=== PATIENT | male | born 1985 | race Caucasian/White ===

== ENCOUNTER → 2023-08-20 | Emergency (ER) | payer OTHER, SELFPAY ==
[~2023-08-20] MED LIST: ACETAMINOPHEN 500 MG TAB ONE; IBUPROFEN 200 MG TAB PO ONE; IBUPROFEN 400 MG TAB ONE; LIDOCAINE 1% 20 ML MDV ONE; TDAP (DIPHTH,PERTUSS(ACELL),TET VAC) 0.5 ML VIAL IMVAC ONE
--- NOTE | 2023-08-20 20:59 | EDPHYS ---
Physician Documentation [facility] Name: Pj Anthony Age: 38 yrs Sex: Male : 1985 Arrival Date: 08/20/2023 Time: 18:40 Bed 14 Private MD: ED Physician Diogo Maravilla HPI: 08/19 21:17 This 38 yrs old Male presents to ER via Wheelchair with complaints of Laceration To Leg.kb 21:17 Patient is a 38-year-old male who presents for laceration to right thigh that occurred kb just prior to arrival. 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 Historical: - Allergies: 19:31 No Known Allergies; ll1 - Home Meds: 19:31 None [Active]; ll1 - PMHx: 19:31 None; ll1 - PSHx: 19:31 None; ll1 - Immunization history:: Adult Immunizations unknown, Last tetanus immunization: unknown. - Social history:: Smoking status: Patient/guardian denies using tobacco, Stopped _ months ago 3 Patient/guardian denies using alcohol, street drugs. ROS: 21:13 Constitutional: As per HPI kb Exam: 21:13 Constitutional: This is a well developed, well nourished patient who is awake, alert, kb and in no acute distress. Head/Face: Normocephalic, atraumatic. ENT: Moist Mucous membranes Cardiovascular: Regular rate Respiratory: Respirations even and unlabored. No increased work of breathing. Talking in full sentences MS/ Extremity: Pulses equal, no cyanosis. Neurovascular intact. Full, normal range of motion. Neuro: Awake and alert, GCS 15, oriented to person, place, time, and situation. Moves all extremities. Normal gait. 21:13 Skin: injury, laceration(s), the wound is approximately 8 cm(s), of the right quadriceps, that can be described as clean, no foreign body, linear, with mild bleeding, Vital Signs: 19:28 BP 140 / 87; Pulse 74; Resp 16; Temp 98.2(O); Pulse Ox 100% on R/A; Weight 83.91 kg; ll1 Height 5 ft. 11 in. ; Pain 0/10; 20:53 BP 131 / 83; Pulse 76; Resp 17; Temp 98; Pulse Ox 99% ; rv 19:28 Body Mass Index 25.80 (83.91 kg, 180.34 cm) ll1 19:28 Pain Scale: Adult ll1 [place] Coma Score: 20:43 Eye Response: spontaneous(4). Motor Response: obeys commands(6). Verbal Response: rv oriented(5). Total: 15. 20:53 Eye Response: spontaneous(4). Motor Response: obeys commands(6). Verbal Response: rv oriented(5). Total: 15. Laceration: 20:56 Wound Repair of 8cm ( 3.1in ) subcutaneous laceration to right quadriceps. Linear kb shaped.. Distal neuro/vascular/tendon intact. Anesthesia: Local anesthetic administered with 6 mls of 1% lidocaine. Wound prep: Extensive cleansing with hibiclenz by me, Wound irrigation with saline by me. Skin closed with 6 4-0 Prolene using 4 cruciate knots, 2 simple sutures. Patient tolerated well. MDM: 19:00 Patient medically screened. kb 20:56 Differential diagnosis: superficial laceration, tendon injury, vascular injury. Data kb reviewed: vital signs, nurses notes. Counseling: I had a detailed discussion with the patient and/or guardian regarding the historical points, exam findings, and any diagnostic results supporting the discharge/admit diagnosis, the need for outpatient follow up, a family practitioner, to return to the emergency department if symptoms worsen or persist or if there are any questions or concerns that arise at home. 08/19 19:55 Order name: Dressing - Wound; Complete Time: 20:27 kb 08/19 19:55 Order name: Gloves, Sterile: size 6 ; Complete Time: 20:27 kb 08/19 19:55 Order name: Prolene, Sutures: 4.0 prolene; Complete Time: 20:27 kb 08/19 19:55 Order name: Setup Suture Tray; Complete Time: 20:27 kb Administered Medications: 20:27 Drug: Boostrix Tdap IM 0.5 ml IM once; as a single dose Route: IM; Site: right deltoid; rv 20:53 Follow up: Response: No adverse reaction; Marked relief of symptoms rv 20:27 Drug: Acetaminophen PO 1000 mg PO once Route: PO; rv 20:53 Follow up: Response: No adverse reaction; Marked relief of symptoms rv 20:27 Drug: Ibuprofen PO 600 mg PO once Route: PO; rv 20:53 Follow up: Response: No adverse reaction; Marked relief of symptoms rv 20:52 Drug: Lidocaine Infiltration (1 %) 1 vials 20 ml Infiltration once; to bedside {Note: rv adminsitered by Cele ARCE.} Volume: 20 ml; Route: Infiltration; Disposition Summary: 08/20/23 20:58 Discharge Ordered Notes: Location: Home kb Condition: Stable kb Diagnosis - Laceration without foreign body of right thigh kb Followup: kb - With: Emergency Department - When: As needed - Reason: Worsening of condition Followup: kb - With: Private Physician - When: 2 - 3 days - Reason: Recheck today's complaints, Continuance of care, Re-evaluation by your physician Discharge Instructions: - Discharge Summary Sheet kb - Laceration Care, Adult, [id number] kb Forms: - Work release form kb - Medication Reconciliation Form kb - Thank You Letter kb - Antibiotic Education kb - Prescription Opioid Use kb - Patient Portal Instructions kb - Leadership Thank You Letter kb Prescriptions: - Ibuprofen 800 mg Oral Tablet - take 1 tablet ORAL route every 8 hours As needed take with food; 30 tablet; kb Refills: 0, Product Selection Permitted Signatures: Cele Ferguson, [employer] SUPERVISOR-Robert Bhatt RN RN Philomena Rosario RN RN ll1 Corrections: (The following items were deleted from the chart) 19:33 19:31 PSHx: Unable to Obtain; ll1 ll1
--- NOTE | 2023-08-20 20:59 | ER ---
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 Bleeding controlled. Coronavirus screen: At this time, the client does not indicate any symptoms associated with coronavirus-19. Ebola Screen: No symptoms or risks identified at this time. Complicating Factors: There are no complicating factors for this patient. Initial Sepsis Screen: Does the patient meet any 2 criteria? No. Patient's initial sepsis screen is negative. Does the patient have a suspected source of infection? No. Patient's initial sepsis screen is negative. Risk Assessment: Do you want to hurt yourself or someone else? Patient reports no desire to harm self or others. Onset of symptoms was August 20, 2023 at 18:30. 19:28 Method Of Arrival: Wheelchair ll1 19:28 Acuity: FLY 4 ll1 Triage Assessment: 19:33 General: Appears in no apparent distress. Behavior is calm, cooperative. Pain: Denies ll1 pain. EENT: No deficits noted. No signs and/or symptoms were reported regarding the EENT system. Neuro: No deficits noted. Cardiovascular: No deficits noted. Respiratory: No deficits noted. GI: No deficits noted. No signs and/or symptoms were reported involving the gastrointestinal system. : No deficits noted. No signs and/or symptoms were reported regarding the genitourinary system. Derm:. Injury Description: Laceration sustained to right thigh is clean. Historical: - Allergies: 19:31 No Known Allergies; ll1 - Home Meds: 19:31 None [Active]; ll1 - PMHx: 19:31 None; ll1 - PSHx: 19:31 None; ll1 - Immunization history:: Adult Immunizations unknown, Last tetanus immunization: unknown. - Social history:: Smoking status: Patient/guardian denies using tobacco, Stopped _ months ago 3 Patient/guardian denies using alcohol, street drugs. Screenin:42 [facility] ED Fall Risk Assessment (Adult) History of falling in the last 3 months, rv including since admission No falls in past 3 months (0 pts) Score/Fall Risk Level 0 - 2 = Low Risk Oriented to surroundings, Maintained a safe environment, Educated pt \T\ family on fall prevention, incl call for assistance when getting out of bed, Assessed \T\ reinforced patient's understanding of fall precautions. Abuse screen: Denies threats or abuse. Denies injuries from another. Nutritional screening: No deficits noted. Tuberculosis screening: No symptoms or risk factors identified. Assessment: 20:15 General: Appears comfortable, Behavior is calm, cooperative. rv 20:15 Pain: Complains of pain in right upper leg. Neuro: Level of Consciousness is awake, rv alert, obeys commands, Oriented to person, place, time, situation. Cardiovascular: Capillary refill < 3 seconds Patient's skin is warm and dry. Respiratory: Airway is patent Respiratory effort is even, unlabored. Musculoskeletal: No signs and/or symptoms reported regarding the musculoskeletal system. Injury Description: Laceration sustained to right upper leg is 2.6 to 7.5 cm long, was sustained less than 30 minutes ago. is bleeding a small amount. Vital Signs: 19:28 BP 140 / 87; Pulse 74; Resp 16; Temp 98.2(O); Pulse Ox 100% on R/A; Weight 83.91 kg; ll1 Height 5 ft. 11 in. ; Pain 0/10; 20:53 BP 131 / 83; Pulse 76; Resp 17; Temp 98; Pulse Ox 99% ; rv 19:28 Body Mass Index 25.80 (83.91 kg, 180.34 cm) ll1 19:28 Pain Scale: Adult ll1 [place] Coma Score: 20:43 Eye Response: spontaneous(4). Motor Response: obeys commands(6). Verbal Response: rv oriented(5). Total: 15. 20:53 Eye Response: spontaneous(4). Motor Response: obeys commands(6). Verbal Response: rv oriented(5). Total: 15. ED Course: 18:44 Patient arrived in ED. im 19:00 Cele Ferguson FNP-C [facility]. kb 19:00 Diogo Maravilla MD is Attending Physician. kb 19:31 Triage completed. ll1 19:34 Arm band placed on right wrist. ll1 20:26 Robert Martin, RN is Primary Nurse. rv 20:42 Assist provider with laceration repair on right upper leg that was between 2.6 to 7.5 rv cm using sutures. Set up tray. Performed by Cele PERSAUD Dressed with 4X4s, Patient tolerated well. Patient did not have IV access during this emergency room visit. 20:43 Patient has correct armband on for positive identification. Client placed on continuous rv cardiac and pulse oximetry monitoring. NIBP monitoring applied. Administered Medications: 20:27 Drug: Boostrix Tdap IM 0.5 ml IM once; as a single dose Route: IM; Site: right deltoid; rv 20:53 Follow up: Response: No adverse reaction; Marked relief of symptoms rv 20:27 Drug: Acetaminophen PO 1000 mg PO once Route: PO; rv 20:53 Follow up: Response: No adverse reaction; Marked relief of symptoms rv 20:27 Drug: Ibuprofen PO 600 mg PO once Route: PO; rv 20:53 Follow up: Response: No adverse reaction; Marked relief of symptoms rv 20:52 Drug: Lidocaine Infiltration (1 %) 1 vials 20 ml Infiltration once; to bedside {Note: rv adminsitered by Cele ARCE.} Volume: 20 ml; Route: Infiltration; Medication: 20:43 Vaccine Information Statement (VIS) provided today. Questions and/or concerns rv addressed. VIS edition date: August 20, 2023. Outcome: 20:53 Discharged to home ambulatory, rv 20:53 Condition: good 20:53 Discharge instructions given to patient, Instructed on discharge instructions, follow up and referral plans. medication usage, wound care, suture removal Demonstrated understanding of instructions, follow-up care, medications, Prescriptions given X 1, 20:58 Discharge ordered by . kb 21:01 Patient left the ED. rv Signatures: Cele Ferguson FNP-C FNP-Robert Bhatt, RN RN rv Philomena De Santiago RN RN ll1 Cheryl Bishop Corrections: (The following items were deleted from the chart) 19:33 19:31 PSHx: Unable to Obtain; ll1 ll1
[2023-08-20 21:14] VITALS: BP 131/83; TEMP 98; O2SAT 99
== END ==
LOC: ER 18:40
PROC: 0HQHXZZ Repair Right Upper Leg Skin, External Approach (ICD-10-PCS; principal; 2023-08-20)
DX: S71.111A Laceration without foreign body, right thigh, initial encounter (principal)
CPT/HCPCS: 96372; 99284; J2001